=== PATIENT | male | born 1965 | race Caucasian/White ===

== ENCOUNTER → 2023-11-05 07:02 | Outpatient (REF) | payer OTHER, SELFPAY | LOC: HWRCS 07:02 | PROVIDERS: ATTENDING PHYSICIAN Internal Medicine Geriatric Medicine | DX: Q24.8 Other specified congenital malformations of heart (principal) | CPT/HCPCS: 93306 ==

== ENCOUNTER → 2024-09-12 18:38 | Outpatient (REF) | payer OTHER, SELFPAY | LOC: PAVMRI 18:38 | PROVIDERS: ATTENDING PHYSICIAN Orthopaedic Surgery; FAMILY PHYSICIAN Internal Medicine Geriatric Medicine | DX: M25.511 Pain in right shoulder (principal) | CPT/HCPCS: 73221 ==

== ENCOUNTER → 2024-12-26 11:50 | Outpatient (REF) | payer OTHER, SELFPAY | LOC: DHSLP 11:50 | PROVIDERS: ATTENDING PHYSICIAN Internal Medicine Geriatric Medicine | DX: G47.33 Obstructive sleep apnea (adult) (pediatric) (principal) | CPT/HCPCS: 95800 ==

== ENCOUNTER → 2025-09-22 12:00 | Outpatient (REF) | payer SELFPAY | LOC: DHSLP 12:00 | PROVIDERS: ATTENDING PHYSICIAN Internal Medicine Critical Care Medicine; FAMILY PHYSICIAN Internal Medicine Geriatric Medicine | DX: G47.33 Obstructive sleep apnea (adult) (pediatric) (principal) | CPT/HCPCS: 95800 ==